=== PATIENT | male | born 1980 | race Hispanic/Latino ===

== ENCOUNTER 2016-12-17 19:00 | Emergency (ER) | payer BC ==
[2016-12-17 19:38] VITALS: O2SAT 98
[2016-12-17] MEDS ORDERED: Lidocaine 5% Patch TD STA (19:59)
[2016-12-17] MEDS ORDERED: Oxycodone/Acetaminophen 5/325 mg Tab PO STA (19:59)
[2016-12-17] MEDS ORDERED: Lidocaine 5% Patch TD ONE (20:16)
[2016-12-17] MEDS ORDERED: Oxycodone/Acetaminophen 5/325 mg Tab ONE (20:17)
--- NOTE | 2016-12-17 20:36 | C.PDOC ---
History Of Present Illness 36 y/o male presents to ED with complaint of lower back pain onset after opening a window earlier today. Patient reports past history of chronic back pain and herniated discs. Patient states pain worsens with movement. Otherwise, patient denies trauma, neck pain, nausea, vomiting, urinary or bowel incontinence, new weakness, new numbness, tingling sensation, or other associated symptoms. Time Seen by Provider: 12/17/16 19:42 Chief Complaint (Nursing): Back Pain History Per: Patient History/Exam Limitations: no limitations Onset/Duration Of Symptoms: Hrs Current Symptoms Are (Timing): Still Present Quality Of Discomfort: "Pain" Previous Symptoms: Back Pain, Chronic Pain Associated Symptoms: None Exacerbating Factor(s): Movement Recent travel outside of the [place]: No Past Medical History Reviewed: Historical Data, Nursing Documentation, Vital Signs Vital Signs: Last Vital Signs Temp 98.2 F 12/17/16 20:46 Pulse 79 12/17/16 20:46 Resp 18 12/17/16 20:46 BP 110/69 12/17/16 20:46 Pulse Ox 98 12/17/16 20:46 - Medical History PMH: Back Problems Family History: States: Unknown Family Hx - Social History Hx Alcohol Use: No Hx Substance Use: Yes (for medicinal purpose) - Immunization History Hx Influenza Vaccination: No Hx Pneumococcal Vaccination: Yes Review Of Systems Except As Marked, All Systems Reviewed And Found Negative. Constitutional: Negative for: Fever, Chills Gastrointestinal: Negative for: Nausea, Vomiting, Abdominal Pain Genitourinary: Negative for: Incontinence Musculoskeletal: Positive for: Back Pain. Negative for: Neck Pain Skin: Negative for: Rash Neurological: Negative for: Weakness, Numbness Physical Exam - Physical Exam Appears: Non-toxic, No Acute Distress Skin: Normal Color, Warm, Dry Head: Atraumatic, Normacephalic Neck: Normal ROM, No Midline Cervical Tenderness, No Paracervical Tenderness, Supple Chest: Symmetrical Cardiovascular: Rhythm Regular Respiratory: Normal Breath Sounds, No Rales, No Rhonchi, No Wheezing Gastrointestinal/Abdominal: Soft, No Tenderness, No Guarding, No Rebound Back: No Vertebral Tenderness, Paraspinal Tenderness (right, paralumbar), No Straight Leg Raising Extremity: Normal ROM, No Tenderness, Capillary Refill (< 2 sec. ), No Deformity Extremity: Bilateral: Normal Color And Temperature Neurological/Psych: Oriented x3, Normal Speech, Normal Cognition, Normal Motor, Normal Sensation Gait: Steady ED Course And Treatment O2 Sat by Pulse Oximetry: 98 (RA) Pulse Ox Interpretation: Normal - Other Rad LS Spine XR X-Ray: Interpreted by Me, Viewed By Me Interpretation: negative for fx or dislocation Progress Note: Treated with Toradol, Lidoderm patch, and Percocet. LS Spine x- ray ordered and reviewed; negative for acute bony abnormality. On re-evaluation , patient reports improvement of pain, and is in no acute distress. Patient is ambulatory in ED w/o difficulty. Advised follow up with clinic/PMD. Disposition - Disposition Referrals: [facility] [Outside] Disposition: HOME/ ROUTINE Disposition Time: 20:36 Condition: GOOD Additional Instructions: Follow up with the medical doctor within 1-2 days. Return if worsened. 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 - Scribe Statement The provider has reviewed the documentation as recorded by the Pinkyibradha Sifuentes All medical record entries made by the Sandee were at my direction and personally dictated by me. I have reviewed the chart and agree that the record accurately reflects my personal performance of the history, physical exam, medical decision making, and the department course for this patient. I have also personally directed, reviewed, and agree with the discharge instructions and disposition.
[2016-12-17 20:46] VITALS: BP 110/69; PULSE 79; RESP 18; TEMP 98.2
--- NOTE | 2016-12-18 08:28 | RAD ---
Lumbar spine three views History: Back pain. Comparison: None available. Findings: Minimal dextroscoliotic curvature of the mid lumbar spine. Disc space narrowing at the L4-5 disc space with endplate sclerosis. Multilevel anterior osteophyte formation. Multilevel facet hypertrophy and sclerosis. Impression: Degenerative changes. If pain persists, consider MRI.
== END 2016-12-17 20:52 | disposition home or self-care (01) ==
LOC: C.ER 19:00
DX: M54.16 Radiculopathy, lumbar region (principal)
CPT/HCPCS: 72100; 96372; 99283; J1885

== ENCOUNTER 2016-12-18 05:30 | Emergency (ER) | payer BC ==
--- NOTE | 2016-12-18 06:03 | C.PDOC ---
History Of Present Illness 36 year old male presents to the ED with complaint of left lower back pain after opening a window yesterday. Patient reports past history of chronic back pain and herniated discs. Patient states pain worsens with movement and radiates down the entire left leg. He states he was seen in the ED yesterday and given medications, he states he went home feeling little better, but the pain persisted through the night and was unable to sleep. He states they only did xray, no MRI and it has been years since he had one. Otherwise, patient denies fall, neck pain, nausea, vomiting, urinary or bowel incontinence, new weakness, new numbness, or other associated symptoms. Time Seen by Provider: 12/18/16 05:50 History Per: Patient History/Exam Limitations: no limitations Onset/Duration Of Symptoms: Days (yesterday) Current Symptoms Are (Timing): Still Present Quality Of Discomfort: "Pain" Severity: Mild Pain Scale Rating Of: 3 Previous Symptoms: Back Pain, Chronic Pain Associated Symptoms: None Exacerbating Factor(s): Movement Recent travel outside of the [facility]: No Past Medical History Reviewed: Historical Data, Nursing Documentation, Vital Signs Vital Signs: Last Vital Signs Temp 97.9 F 12/18/16 05:41 Pulse 80 12/18/16 05:41 Resp 20 12/18/16 05:41 BP 123/91 H 12/18/16 05:41 Pulse Ox 97 12/18/16 06:12 - Medical History PMH: Back Problems Family History: States: Unknown Family Hx - Social History Hx Alcohol Use: No Hx Substance Use: Yes (for medicinal purpose) - Immunization History Hx Influenza Vaccination: No Hx Pneumococcal Vaccination: Yes Review Of Systems Except As Marked, All Systems Reviewed And Found Negative. Gastrointestinal: Negative for: Nausea, Vomiting Genitourinary: Negative for: Incontinence (urinary or bowel) Musculoskeletal: Positive for: Back Pain (left lower), Leg Pain (left). Negative for: Neck Pain Neurological: Negative for: Weakness, Numbness Physical Exam - Physical Exam Appears: Non-toxic, Other (uncomfortable; in pain) Skin: Warm, Dry Head: Atraumatic, Normacephalic Neck: Normal ROM, Supple Chest: Symmetrical Cardiovascular: Rhythm Regular Respiratory: Normal Breath Sounds, No Rales, No Rhonchi, No Wheezing Gastrointestinal/Abdominal: Soft, No Tenderness Back: No CVA Tenderness, No Vertebral Tenderness, Other (paralumbar muscle tenderness, mild swelling and muscle spasm to left side) Extremity: Normal ROM, No Pedal Edema, No Calf Tenderness, No Swelling Neurological/Psych: Oriented x3, Normal Speech, Normal Cognition Gait: Steady ED Course And Treatment O2 Sat by Pulse Oximetry: 97 (room air) Pulse Ox Interpretation: Normal Medical Decision Making Medical Decision Making: Impression: 36 y/o male with left lower back pain Plan: * Morphine Prior record reviewed showing patient had LS spine XRay performed showing no acute fracture or subluxation and treated with Toradol, Lidoderm and Percocet. [facility] reviewed 09/20/16 OXYCODONE-ACETAMINOPHEN 10-325 #30 08/26/16 OXYCODONE-ACETAMINOPHEN 10-325 #30 07/24/16 OXYCODONE-ACETAMINOPHEN 5-325 #30 On re-evaluation, patient is now able to sit and lay down more comfortably and reports pain is improving. List of local orthopedic providers was given to patient. Also provide number for [employer] [employer] service to help find primary and ortho. Patient to be discharged with Rx. Disposition Counseled Patient/Family Regarding: Diagnosis, Need For Followup, Rx Given - Disposition Referrals: [facility] [Outside] [facility] [Outside] Jose A Kerr III, MD [Staff Provider] - Disposition: HOME/ ROUTINE Disposition Time: 06:42 Condition: IMPROVED Additional Instructions: Please continue taking medications for pain You may follow up with orthopedic for further evaluation Recommend follow up with primary physician for chronic pain and possible MRI Prescriptions: Methylprednisolone [Medrol Dose Pack (21 tabs)] 4 mg PO DAILY #21 mg Instructions: Sciatica (ED) - POA Present On Arrival: None - Clinical Impression Clinical Impression: Lumbar radiculopathy, Low back pain - 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 - Scribe Statement The provider has reviewed the documentation as recorded by the Scribe Macy Hurt All medical record entries made by the Scribe were at my direction and personally dictated by me. I have reviewed the chart and agree that the record accurately reflects my personal performance of the history, physical exam, medical decision making, and the department course for this patient. I have also personally directed, reviewed, and agree with the discharge instructions and disposition.
[2016-12-18] MEDS ORDERED: Morphine 4 MG/ML VIAL ONE ×2 (06:09→06:10)
[2016-12-18 06:56] VITALS: BP 131/88; PULSE 83; RESP 19; TEMP 98.3
[2016-12-18 20:54] VITALS: O2SAT 97
== END 2016-12-18 06:55 | disposition home or self-care (01) ==
LOC: C.ER 05:30
DX: M54.16 Radiculopathy, lumbar region (principal); M54.5 Low back pain
CPT/HCPCS: 96372; 99283; J2270